=== PATIENT | female | born 1985 | race Two or more races ===

== ENCOUNTER 2019-06-06 06:18 | Emergency (ER) | payer MEDICAID, OTHER ==
[~2019-06-06] VITALS: Ht 165.1 cm; Wt 77.1 kg
[~2019-06-06 06:18] MED LIST: RESTORIL7.5 MG ORAL; SYNTHROID75 MCG ORAL
--- NOTE | 2019-06-06 06:18 | NUR ---
ED Nurse Note: PT BROUGHT IN BY [employer] AND [employer] FROM [facility] [employer] FOR BEHAVIORAL COMPLAINT. PER EMS, PATIENT WAS FOUND RUNNING ON THE STREET. PER [employer], PATIENT IS NOT ON HOLD. SITTER AT BEDSIDE
[2019-06-06 06:33] VITALS: BP 117/81
--- NOTE | 2019-06-06 06:38 | NUR ---
ED Nurse Note: ELOPEMENT: PT ELOPED SITTER AND PRIMARY RN TRIED TO REASSURE THE PATIENT BACK TO BED. PT RAN OUT THE EXIT. SECURITY WAS CALLED UPON SITUATION BUT PATIENT WAS GONE. NO IV OR OTHER MEDICAL DEVICES WERE ATTACHED TO THE PATIENT. 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
--- NOTE | 2019-06-06 06:45 | Emergency Room Report ---
History of Present Illness General Chief Complaint: Behavioral Complaint Source: Patient Present Illness HPI Going to see the patient, patient was running out of the room. " I have to see my boyfriend" While calling security, Patient eloped And there was no other contact with the patient Allergies: Coded Allergies: No Known Allergies (Unverified , 06/06/19) COVID-19 Screening Contact w/high risk pt: No Recent Travel to affected area: No Experienced COVID-19 symptoms?: No Nursing Documentation-[facility] Past Medical History: No Stated History Physical Exam Vital Signs Date Time Temp Pulse Resp B/P (MAP) Pulse Ox O2 Delivery O2 Flow Rate FiO2 06/06/19 06:18 98.4 122 18 117/81 (93) 98 Room Air Medical Decision Making ER Course eloped prior to being seen Last Vital Signs Date Time Temp Pulse Resp B/P (MAP) Pulse Ox O2 Delivery O2 Flow Rate FiO2 06/06/19 06:18 98.4 122 18 117/81 (93) 98 Room Air Status: other Disposition: ELOPED Condition: Unknown Referrals: NON PHYSICIAN (PCP) Tariq Bruce DO Jun 06, 2019 06:45
== END 2019-06-06 06:51 | disposition left against medical advice (07) ==
LOC: EDBD 06:18 → EMR 06:41
DX: Z53.21 Procedure and treatment not carried out due to patient leaving prior to being seen by health care provider (principal)